=== PATIENT | female | born 1990 | race Caucasian/White ===

== ENCOUNTER 2019-01-18 03:18 | Emergency (ER) | payer SELFPAY ==
--- NOTE | 2019-01-18 03:57 | EDM.PDOC ---
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 She is 13 weeks . She is 3 para 2. She awoke shortly before arrival here to void and past some bright red blood and several clots. She but the clots in a bag and brought him in she has a couple of moderate size clots and is a block bag. She's having some mild discomfort and mild cramping. She is not having burning or frequency with urination she denies fevers or chills. She is not sure what type of blood she has however she's always require Rhogam after her last deliverys. Lower Back Pain Score (Numeric/FACES): 3 - Related Data Allergies Allergy/AdvReac Type Severity Reaction Status Date / Time No Known Allergies Allergy Verified 01/18/19 03:26 Home Meds: Home Meds Pnv No.95/Ferrous Fum/Folic AC [ Caplet] 1 tab PO DAILY 01/18/19 [ History] Past Medical History Oncologic (Cancer) History: Reports: Malignant Melanoma Social & Family History - Family History Family Medical History: Noncontributory - Tobacco Use Smoking Status *Q: Never Smoker - Caffeine Use Caffeine Use: Reports: Coffee - Recreational Drug Use Recreational Drug Use: No ED ROS GENERAL - Review of Systems Review Of Systems: See Below Constitutional: Reports: No Symptoms HEENT: Reports: No Symptoms Respiratory: Reports: No Symptoms Cardiovascular: Reports: No Symptoms GI/Abdominal: Reports: No Symptoms : Denies: Dysuria, Flank Pain, Frequency Musculoskeletal: Reports: Back Pain Skin: Reports: No Symptoms Neurological: Reports: No Symptoms ED EXAM - Physical Exam Exam: See Below Exam Limited By: No Limitations General Appearance: Alert, No Apparent Distress Respiratory/Chest: No Respiratory Distress, Lungs Clear, Normal Breath Sounds Cardiovascular: Regular Rate, Rhythm, No Edema, No Murmur GI/Abdominal Exam: Normal Bowel Sounds, Soft, Tender (Is some mild suprapubic discomfort and over the uterus). No: Guarding, Rigid, Rebound (Female) Exam: Normal Bimanual Exam, Normal External Exam, Other (Cervix is way posterior long thick and closed no clots found in the vaginal vault small amount of bloody drainage maroon to brown) Heart Tones: Present Heart Tones per Min: 150 Back Exam: Normal Inspection, Muscle Spasm (She has some muscle spasm noted in the left lumbar paraspinous muscles). No: CVA Tenderness (L), CVA Tenderness (R ), Vertebral Tenderness Extremities: No Pedal Edema Skin Exam: Warm, Dry, Intact Course - Vital Signs Last Recorded V/S: Last Vital Signs Temp 36.8 C 01/18/19 03:23 Pulse 82 01/18/19 03:23 Resp 16 01/18/19 03:23 BP 126/76 01/18/19 03:23 Pulse Ox 99 01/18/19 03:23 - Orders/Labs/Meds Orders: Active Orders 24 hr Category Date Time Status Pelvic Exam, Set Up [RC] ASDIRECTED Care 01/18/19 05:15 Active OB Transvaginal [US] Routine Exams 01/18/19 04:10 Taken PATIENT RETYPE [BBK] Routine Lab 01/18/19 05:57 Ordered Labs: Laboratory Tests 01/18/19 01/18/19 01/18/19 Range/Units 03:43 03:51 03:51 WBC 8.47 (3.98-10.04) K/mm3 RBC 3.91 L (3.98-5.22) M/mm3 Hgb 12.9 (11.2-15.7) gm/dl Hct 36.0 (34.1-44.9) % MCV 92.1 (79.4-94.8) fl MCH 33.0 H (25.6-32.2) pg MCHC 35.8 H (32.2-35.5) g/dl RDW Std Deviation 39.6 (36.4-46.3) fL Plt Count 231 (182-369) K/mm3 MPV 10.4 (9.4-12.3) fl Neut % (Auto) 55.3 (34.0-71.1) % Lymph % (Auto) 32.5 (19.3-51.7) % [place] % (Auto) 8.4 (4.7-12.5) % Eos % (Auto) 3.3 (0.7-5.8) Baso % (Auto) 0.5 (0.1-1.2) % Neut # (Auto) 4.69 (1.56-6.13) K/mm3 Lymph # (Auto) 2.75 (1.18-3.74) K/mm3 [place] # (Auto) 0.71 H (0.24-0.36) K/mm3 Eos # (Auto) 0.28 (0.04-0.36) K/mm3 Baso # (Auto) 0.04 (0.01-0.08) K/mm3 Sodium 138 (136-145) mEq/L Potassium 3.4 L (3.5-5.1) mEq/L Chloride 104 (98-107) mEq/L Carbon Dioxide 25 (21-32) mEq/L Anion Gap 12.4 (5-15) BUN 13 (7-18) mg/dL Creatinine 0.8 (0.55-1.02) mg/dL Est Cr Clr Drug Dosing 85.06 mL/min Estimated GFR (MDRD) > 60 (>60) mL/min BUN/Creatinine Ratio 16.3 (14-18) Glucose 93 (74-106) mg/dL Calcium 8.3 L (8.5-10.1) mg/dL Total Bilirubin 0.2 (0.2-1.0) mg/dL AST 13 L (15-37) U/L ALT 17 (14-59) U/L Alkaline Phosphatase 50 (46-116) U/L Total Protein 6.2 L (6.4-8.2) g/dl Albumin 3.0 L (3.4-5.0) g/dl Globulin 3.2 gm/dL Albumin/Globulin Ratio 0.9 L (1-2) HCG, Quant 22218.0 mIU/mL Urine Color [place] H (Yellow) Urine Appearance Slt cloudy H (Clear) Urine pH 7.0 (5.0-8.0) Ur Specific [place] 1.015 (1.005-1.030) Urine Protein Trace H (Negative) Urine Glucose (UA) Negative (Negative) Urine Ketones Negative (Negative) Urine Occult Blood 3+ H (Negative) Urine Nitrite Negative (Negative) Urine Bilirubin Negative (Negative) Urine Urobilinogen 0.2 (0.2-1.0) Ur Leukocyte Esterase Negative (Negative) Urine RBC 40-50 H (0-5) /hpf Urine WBC 0-5 (0-5) /hpf Ur Epithelial Cells 0-5 (0-5) /hpf Urine Bacteria Few (FEW) /hpf Urine Mucus Rare (FEW) /hpf Blood Type Gel Antibody Screen Rhogam Indicated 01/18/19 Range/Units 03:51 WBC (3.98-10.04) K/mm3 RBC (3.98-5.22) M/mm3 Hgb (11.2-15.7) gm/dl Hct (34.1-44.9) % MCV (79.4-94.8) fl MCH (25.6-32.2) pg MCHC (32.2-35.5) g/dl RDW Std Deviation (36.4-46.3) fL Plt Count (182-369) K/mm3 MPV (9.4-12.3) fl Neut % (Auto) (34.0-71.1) % Lymph % (Auto) (19.3-51.7) % [place] % (Auto) (4.7-12.5) % Eos % (Auto) (0.7-5.8) Baso % (Auto) (0.1-1.2) % Neut # (Auto) (1.56-6.13) K/mm3 Lymph # (Auto) (1.18-3.74) K/mm3 [place] # (Auto) (0.24-0.36) K/mm3 Eos # (Auto) (0.04-0.36) K/mm3 Baso # (Auto) (0.01-0.08) K/mm3 Sodium (136-145) mEq/L Potassium (3.5-5.1) mEq/L Chloride (98-107) mEq/L Carbon Dioxide (21-32) mEq/L Anion Gap (5-15) BUN (7-18) mg/dL Creatinine (0.55-1.02) mg/dL Est Cr Clr Drug Dosing mL/min Estimated GFR (MDRD) (>60) mL/min BUN/Creatinine Ratio (14-18) Glucose (74-106) mg/dL Calcium (8.5-10.1) mg/dL Total Bilirubin (0.2-1.0) mg/dL AST (15-37) U/L ALT (14-59) U/L Alkaline Phosphatase (46-116) U/L Total Protein (6.4-8.2) g/dl Albumin (3.4-5.0) g/dl Globulin gm/dL Albumin/Globulin Ratio (1-2) HCG, Quant mIU/mL Urine Color (Yellow) Urine Appearance (Clear) Urine pH (5.0-8.0) Ur Specific [place] (1.005-1.030) Urine Protein (Negative) Urine Glucose (UA) (Negative) Urine Ketones (Negative) Urine Occult Blood (Negative) Urine Nitrite (Negative) Urine Bilirubin (Negative) Urine Urobilinogen (0.2-1.0) Ur Leukocyte Esterase (Negative) Urine RBC (0-5) /hpf Urine WBC (0-5) /hpf Ur Epithelial Cells (0-5) /hpf Urine Bacteria (FEW) /hpf Urine Mucus (FEW) /hpf Blood Type O NEGATIVE Gel Antibody Screen Negative Rhogam Indicated Yes - Re-Assessments/Exams Free Text/Narrative Re-Assessment/Exam: 01/18/19 06:56 Patient did pretty well here in the emergency department. She is O- and did receive program and ultrasound was done which showed a vigorous fetus at around the 13 week ilya. The placenta is posterior with a margin over the cervical loss. I did have the opportunity discussed patient's case with Dr. Snowden, the patient's OB who would like to see the patient at the end of this week. It is my understanding the patient has an appointment Thursday with the clinic PA. Departure - Departure Time of Disposition: 06:58 Disposition: Home, Self-Care 01 Clinical Impression: Threatened - Discharge Information Referrals: PCP,Not In Area [Primary Care Provider] - Forms: ED Department Discharge Additional Instructions: Return to the emergency room with any questions problems worsening symptoms. Follow-up with Dr. Snowden at the end of this week. No heavy lifting, nothing over 10 pounds. No intercourse. No strenuous activity. - My Orders Last 24 Hours: My Active Orders 01/18/19 04:10 OB Transvaginal [US] Routine 01/18/19 05:15 Pelvic Exam, Set Up [RC] ASDIRECTED 01/18/19 05:57 PATIENT RETYPE [BBK] Routine - Assessment/Plan Last 24 Hours: My Active Orders 01/18/19 04:10 OB Transvaginal [US] Routine 01/18/19 05:15 Pelvic Exam, Set Up [RC] ASDIRECTED 01/18/19 05:57 PATIENT RETYPE [BBK] Routine
--- NOTE | 2019-01-18 07:30 | US ---
First trimester obstetrical ultrasound: Multiple real-time images were obtained transabdominally and transvaginally. Comparison: No prior obstetrical imaging is available. Dates: Current ultrasound: [facility] 07/24/19, gestational age 13 weeks 2 days Single intrauterine gestation is seen. Embryo is identified. Posterior developing placenta is seen which covers the internal cervical os at this time. Small cyst is noted within the right maternal ovary measuring 3.2 cm. Measurements: BPD: 2.06 cm - 13 weeks 2 days Head circumference: 8.49 cm - 13 weeks 5 days Abdominal circumference: 6.61 cm - 13 weeks 2 days Femur length: 0.98 cm - 12 weeks 6 days Estimated weight: 70 g (0 lbs. 2 oz.), estimated weight at the 48th percentile Heart rate: 150 bpm Cervical length: Not measured, cervix does appear to be closed Impression: 1. Single intrauterine gestation. Dates as noted above. 2. Placenta previa is noted at this time. 3. Cyst believed to be incidental within the maternal left ovary measuring 3.2 cm. Diagnostic code #3 I agree with preliminary report from [facility], finalized on 01/18/19, 7:13 AM Central Time
== END 2019-01-18 07:10 | disposition home or self-care (01) ==
LOC: JD.ED 03:18
DX: O20.0 Threatened abortion (principal); Z85.820 Personal history of malignant melanoma of skin; Z3A.13 13 weeks gestation of pregnancy
CPT/HCPCS: 36415; 76817; 80053; 81001; 84702; 85025; 86850; 86900; 86901; 96374; 99284; J2790; 99282

== ENCOUNTER 2023-05-12 12:24 | Day surgery (SDC) | payer SELFPAY ==
[2023-05-12 14:53] LABS: ANION GAP 13.8 (5-15); BUN/CREATININE RATIO 11.8 (14-18); CALCIUM 8.9 mg/dL (8.5-10.1); CREATININE 1.1 mg/dL (0.55-1.02); EST CRCL DRUG DOSING (CG) 75.04 mL/min; POTASSIUM,K 3.8 mEq/L (3.5-5.1)
[2023-05-12] MEDS ORDERED: Propofol 200 MG/20 ML SDV ONE (14:56)
[2023-05-12] MEDS ORDERED: Midazolam 1 MG/ML 2 ML SDV ONE (14:56)
[2023-05-12] MEDS ORDERED: fentaNYL 250 MCG/5 ML SDV ONE (14:56)
[2023-05-12] MEDS ORDERED: Lidocaine 1% 6 ML ONE (14:56)
[2023-05-12] MEDS ORDERED: Succinylcholine 200 MG/10 ML MDV ONE (14:57)
[2023-05-12] MEDS ORDERED: Rocuronium 50 MG/5 ML Vial ONE (14:57)
[2023-05-12] MEDS ORDERED: Piperacillin/Tazobactam 4.5 GM in Sodium Chloride 0.9% 100 ML IV ONE (15:15)
[2023-05-12] MEDS: Bupivacaine 0.5% 30 ML SDV ONE (15:29)
[2023-05-12] MEDS: EPINEPHrine 1 MG/ML SDV ONE (15:29)
[2023-05-12] MEDS: Lidocaine 1% 30 ML SDV ONE (15:29)
[2023-05-12] MEDS ORDERED: Lactated Ringers 1,000 ML ONE ×2 (15:30→16:06)
[2023-05-12] MEDS ORDERED: Ondansetron 4 MG/2 ML SDV ONE (15:31)
[2023-05-12] MEDS ORDERED: Dexamethasone 4 MG/ML 5 ML MDV ONE (15:45)
[2023-05-12] MEDS ORDERED: Metoclopramide 10 MG/2 ML SDV ONE (15:45)
[2023-05-12] MEDS ORDERED: Ketorolac 30 MG/ML SDV ONE (15:45)
[2023-05-12] MEDS ORDERED: fentaNYL 100 MCG/2 ML SDV IVPUSH PRN (15:49)
[2023-05-12] MEDS ORDERED: Neostigmine Methylsulfate 10 MG/10 ML MDV ONE (16:22)
[2023-05-12] MEDS ORDERED: HYDROmorphone 0.5 MG/0.5 ML Syringe ONE (16:27)
[2023-05-12] MEDS: HYDROmorphone 0.5 MG/0.5 ML Syringe IVPUSH PRN (16:53)
[2023-05-12] MEDS: Acetaminophen 325 MG Tab PO PRN (19:01)
[2023-05-12] MEDS: Ibuprofen 600 MG Tab PO PRN (20:09)
== END 2023-05-12 20:10 | disposition home or self-care (01) ==
LOC: JD.ED 12:24 → JD.SDS 14:44
PROVIDERS: ATTEND Student in an Organized Health Care Education/Training Program
DX: K35.30 Acute appendicitis with localized peritonitis, without perforation or gangrene (principal); D72.829 Elevated white blood cell count, unspecified; Z91.018 Allergy to other foods
CPT/HCPCS: 36415; 44970; 80048; 84703; 99284; A9270; J0171; J0330; J0665; J1100; J1170; J1885; J2250; J2405; J2543; J2704; J2710; J2765; J3010; J3490; J7120; 00840; 99140; 99285